=== PATIENT | female | born 1975 | race Caucasian/White ===

== ENCOUNTER 2024-01-23 12:10 | Emergency (ER) | payer OTHER, SELFPAY ==
[2024-01-23 12:27] VITALS: BP 164/83
== END 2024-01-23 15:00 | disposition left against medical advice (07) ==
LOC: EMR 12:10
PROVIDERS: EMERGENCY PHYSICIAN Student in an Organized Health Care Education/Training Program; FAMILY PHYSICIAN Obstetrics & Gynecology
DX: M25.562 Pain in left knee (principal)
CPT/HCPCS: 99283; 73564

== ENCOUNTER → 2024-02-03 17:39 | Outpatient (REF) | payer OTHER, SELFPAY | LOC: PAVMRI 17:39 | PROVIDERS: ATTENDING PHYSICIAN Student in an Organized Health Care Education/Training Program; FAMILY PHYSICIAN Internal Medicine | DX: S83.207A Unspecified tear of unspecified meniscus, current injury, left knee, initial encounter (principal) | CPT/HCPCS: 73721 ==